=== PATIENT | female | born 1985 | race Hispanic/Latino ===

== ENCOUNTER 2019-01-13 06:54 | Day surgery (SDC) | payer BC ==
[2019-01-12 12:59] VITALS: BMI 16.7
[2019-01-13] MEDS ORDERED: Lidocaine Hydrochloride 5 ML INJ ONE (11:21)
[2019-01-13] MEDS ORDERED: Propofol 10 mg/ml Inj (20 ML) ONE ×2 (11:21→11:28)
[2019-01-13 12:04] VITALS: TEMP 98.2
[2019-01-13 12:19] VITALS: O2SAT 100
[2019-01-13 12:20] VITALS: BP 104/72; PULSE 71; RESP 21
== END 2019-01-13 12:40 | disposition home or self-care (01) ==
LOC: C.ENDO 06:54
PROVIDERS: ATTEND Internal Medicine Gastroenterology
DX: K29.50 Unspecified chronic gastritis without bleeding (principal); K21.0 Gastro-esophageal reflux disease with esophagitis; K31.89 Other diseases of stomach and duodenum
CPT/HCPCS: 43239; 84703; 88305; 88312; 88313; 88342; J2704